=== PATIENT | female | born 1975 | race Caucasian/White ===

== ENCOUNTER 2022-07-03 17:41 | Emergency (ER) | payer MEDICAID ==
[~2022-07-03] VITALS: Ht 167.6 cm; Wt 70.3 kg
[2022-07-03 17:53] VITALS: BP_SYST 139
[2022-07-03] MEDS ORDERED: AUG875 PO ×2 (18:07→19:02)
[2022-07-03] MEDS ORDERED: BENZ100C92 PO ×2 (18:07→19:02)
[2022-07-03] MEDS ORDERED: MED4 PO ×2 (18:07→19:02)
[2022-07-03 18:11] VITALS: BP_SYST 139
== END 2022-07-03 18:11 | disposition home or self-care (01) ==
LOC: SED 17:41
DX: J40 Bronchitis, not specified as acute or chronic (principal); Z79.899 Other long term (current) drug therapy
CPT/HCPCS: 99283